=== PATIENT | female | born 1955 | race African-American/Black ===

== ENCOUNTER 2017-03-27 08:54 | Outpatient (CLI) | payer OTHER | END 2017-03-27 08:55 | disposition home or self-care (01) | LOC: DTY/OP 08:54 | PROVIDERS: ATTEND Surgery | DX: K43.9 Ventral hernia without obstruction or gangrene (principal) | CPT/HCPCS: 97802 ==

== ENCOUNTER 2017-08-17 13:54 | Outpatient (CLI) | payer OTHER, MEDICARE | END 2017-08-17 13:55 | disposition home or self-care (01) | LOC: BICULT 13:54 | PROVIDERS: ATTEND Family Medicine | DX: Z03.89 Encounter for observation for other suspected diseases and conditions ruled out (principal) ==

== ENCOUNTER 2017-09-16 08:00 | Outpatient (CLI) | payer OTHER, MEDICARE | END 2017-09-16 08:01 | disposition home or self-care (01) | LOC: BICMRI 08:00 | PROVIDERS: ATTEND Orthopaedic Surgery | DX: S83.241A Other tear of medial meniscus, current injury, right knee, initial encounter (principal); M23.306 Other meniscus derangements, unspecified meniscus, right knee; M94.261 Chondromalacia, right knee; M22.41 Chondromalacia patellae, right knee; M23.41 Loose body in knee, right knee; M65.9 Synovitis and tenosynovitis, unspecified; M25.461 Effusion, right knee ==

== ENCOUNTER 2017-09-22 10:04 | Outpatient (CLI) | payer OTHER, MEDICARE ==
[2017-09-22 11:27] LABS: #Eosinphils 0.1 thou/uL (0.0-0.7); #Lymphocytes 1.8 thou/uL (1.20-3.40); #Monocytes 0.4 thou/uL (0.11-0.59); #Neutrophils 3.6 thou/uL (1.40-6.50); %Basophils 0.5 % (0.0-1.0); %Eosinophils 1.4 % (0.0-10.0); %Lymphocytes 30.7 % (21.0-51.0); %Monocytes 6.8 % (0.0-10.0); %Neutrophils 60.7 % (42.0-75.0); Hemoglobin 12.6 g/dL (12.0-16.0); Mean Corpuscular HGB CONC 30.4 g/dL (32.0-36.0); Mean Corpuscular Hemoglobin 28.1 pg (27.0-31.0); Mean Corpuscular Volume 92.7 fl (81.0-99.0); Mean Platelet Volume 8.2 fL (7.4-10.4); Platelet Count 234 thou/uL (130-400); RBC Distribution Width 13.4 % (11.5-14.5); Red Blood Cell (RBC) Count 4.47 mill/uL (4.20-5.40); White Blood Cell (WBC) Count 5.9 thou/uL (4.8-10.8)
[2017-09-22 11:51] LABS: ALT (SGPT) 9 U/L (8-55); AST (SGOT) 13 U/L (5-34); Albumin 3.7 g/dL (3.4-4.8); Alkaline Phosphatase 127 U/L (40-150); Anion Gap 10 mmol/L (10-20); BUN (Urea Nitrogen) 15 mg/dL (9.8-20.1); Bilirubin, Total 0.4 mg/dL (0.2-1.2); Calc. Creatinine Clearance 0 mL/min (70-130); Calcium 9.6 mg/dL (7.8-10.44); Carbon Dioxide 29 mmol/L (23-31); Chloride 103 mmol/L (98-107); Estimated GFR-MDRD 65; Globulin 3.5 g/dL (2.4-3.5); Glucose 86 mg/dL (80-115); Potassium 3.9 mmol/L (3.5-5.1); Protein, Total 7.2 g/dL (6.0-8.3); Sodium 138 mmol/L (136-145)
--- NOTE | 2017-09-22 23:54 | EKG ---
Test Reason : Blood Pressure : / mmHG Vent. Rate : 054 BPM Atrial Rate : 054 BPM P-R Int : 150 ms QRS Dur : 088 ms QT Int : 410 ms P-R-T Axes : 023 049 051 degrees QTc Int : 388 ms Sinus bradycardia Otherwise normal ECG When compared with ECG of 29-JAN-2016 11:48, No significant change was found Confirmed by Scarlet RAMIREZ ([id number]) on 09/22/2017 11:53:55 PM Referred By: JOE Confirmed By:Scarlet RAMIREZ
== END 2017-09-22 10:05 | disposition home or self-care (01) ==
LOC: LABBT 10:04
PROVIDERS: ATTEND Surgery
DX: Z01.818 Encounter for other preprocedural examination (principal); K43.2 Incisional hernia without obstruction or gangrene
CPT/HCPCS: 80053; 85025; 93005; 93010

== ENCOUNTER 2017-09-24 06:01 | Inpatient (IN) | payer OTHER, MEDICARE ==
[2017-09-22 10:24] VITALS: BMI 38.8
[2017-09-24] MEDS ORDERED: Lidocaine 2% 10 ML INJ ONE (06:28)
[2017-09-24] MEDS ORDERED: Bupivacaine HCl 0.5%/Epinephrine 1:200,000/PF 30 ml Vial ONE (06:28)
[2017-09-24] MEDS ORDERED: CEFAZOLIN/Water 2 GM/20 ML SYRINGE ONE (06:45)
[2017-09-24] MEDS ORDERED: Fentanyl 100 MCG/2 ML VIAL ONE (07:19)
[2017-09-24] MEDS ORDERED: HYDROmorphone 0.5 MG/0.5 ML SYRINGE ONE (07:19)
[2017-09-24] MEDS ORDERED: Midazolam HCl 2 mg/2 ml Vial ONE ×2 (07:19→07:21)
[2017-09-24] MEDS ORDERED: Zolpidem Tartrate 5 MG TAB PO PRN ×2 (08:44→09:48)
[2017-09-24] MEDS ORDERED: diphenhydrAMINE 50 MG/ML VIAL IM PRN ×2 (08:44→09:48)
[2017-09-24] MEDS ORDERED: diphenhydrAMINE 50 MG/ML VIAL IVP PRN ×2 (08:44→09:48)
[2017-09-24] MEDS ORDERED: Ondansetron HCl/PF 4 MG/2 ML Vial IVP PRN ×4 (08:44→09:48)
[2017-09-24] MEDS ORDERED: Promethazine HCl 25 MG/ML VIAL IM PRN ×4 (08:44→09:48)
[2017-09-24] MEDS ORDERED: Meperidine HCl/PF 25 MG/ML VIAL SLOW IVP PRN (08:44)
[2017-09-24] MEDS ORDERED: diphenhydrAMINE 25 MG CAP PO PRN ×2 (08:44→09:48)
[2017-09-24] MEDS ORDERED: Promethazine HCl 25 MG/ML VIAL SLOW IVP PRN (08:44)
[2017-09-24] MEDS ORDERED: Naloxone HCl 0.4 mg/ml Vial IV PRN ×2 (08:44→09:48)
[2017-09-24] MEDS ORDERED: Communication Order-Pharmacy FS SCH ×2 (08:45→10:00)
[2017-09-24] MEDS ORDERED: hydrALAZINE 20 MG/ML VIAL SLOW IVP PRN (09:22)
[2017-09-24] MEDS ORDERED: Morphine CADD 1 MG/ML CADD IVPB PRN (09:48)
[2017-09-24] MEDS ORDERED: Morphine 4 MG/ML VIAL ONE ×2 (09:50→10:14)
--- NOTE | 2017-09-24 10:07 | OP ---
PREOPERATIVE DIAGNOSIS: Incisional ventral hernia. SURGEON: Mello Mota M.D. PROCEDURE PERFORMED: Open ventral hernia repair with mesh. INDICATIONS: This is a 62-year-old female who had undergone an emergency colectomy for perforation w ith colostomy. She has had a colostomy takedown. She developed ventral hernias on the left side of her abdomen as well as in the midline. FINDINGS: About 6 different hernias, the largest of which was about 4 cm just to the left of the epi gastrium. PROCEDURE IN DETAIL: After informed consent was obtained, patient was taken to the operating room an d given general endotracheal anesthesia. She was placed in the supine position. Abdomen was prepped and draped in usual fashion. An upper midline incision was performed. Subcu divided sharply. Ther e were multiple hernias in the midline. These hernias were all connected. There were also two herni as on the lateral. Lysis of adhesions was performed sharply with Metzenbaum scissors. The hernias t hat were lateral were closed transversely with a running #1 Prolene. Then, a 6 inch x 6 inch Proceed mesh was fashioned by placing alternating colors with total of 8 sutures of 0 Ethibond in circumfere nce. Then the mesh was inserted intra-abdominally and laid out and the sutures were individually gra sped with a GraNee needle transcutaneously and sutured to position the mesh optimally. Then, the hem ostasis was assured. The fascia closed with interrupted [id number] of 8 to #1 Prolene. Then, the Ethibonds were tied down to secure the mesh. The subcu was irrigated with fluid. Subcu closed w ith interrupted 3-0 Vicryl. Skin closed with skin primitivo. The sterile bandage applied. Dermabond was applied were all the little puncture wounds were for the mesh suture. An abdominal binder fantasma long. Patient tolerated the procedure well and was transferred to recovery in good condition. Sponge a nd needle count verified correct x2.
[2017-09-24] MEDS: Ketorolac Tromethamine 30 MG/ML VIAL IVP SCH ×3 (11:47→23:07)
[2017-09-24] MEDS: Sodium Chloride 0.9% 1,000 ML IV SCH ×2 (11:48→17:26)
[2017-09-24] MEDS: Acetaminophen 1,000 MG in Premix Bag 1 BAG IVPB SCH ×6 (13:46→23:11)
[2017-09-24] MEDS: CEFAZOLIN/Water 2 GM/20 ML SYRINGE SLOW IVP SCH ×2 (13:47→22:45)
[2017-09-24] MEDS ORDERED: Ondansetron HCl/PF 4 MG/2 ML Vial ONE (15:05)
[2017-09-24] MEDS ORDERED: Ketorolac Tromethamine 30 MG/ML VIAL ONE (15:05)
[2017-09-24] MEDS ORDERED: Dexamethasone 20 MG/5 ML VIAL ONE (15:05)
[2017-09-24] MEDS ORDERED: Lidocaine 1% PF 5 ML VIAL ONE (15:05)
[2017-09-24] MEDS ORDERED: ePHEDrine/0.9% NaCl/PF SYRINGE 50 mg/10 ml ONE (15:05)
[2017-09-24] MEDS ORDERED: Glycopyrrolate 0.2 MG/ML 5 ML SYRINGE ONE ×2 (15:05)
[2017-09-24] MEDS ORDERED: PROPOFOL 200 MG/20 ML VIAL ONE (15:05)
[2017-09-24] MEDS: Famotidine/PF 20 mg/2ml Vial SLOW IVP SCH (22:45)
[2017-09-24] MEDS: Famotidine 20 MG TAB PO SCH (22:46)
[2017-09-25 04:03] LABS: #Lymphocytes 1.5 thou/uL (1.20-3.40); #Monocytes 0.6 thou/uL (0.11-0.59); #Neutrophils 10.5 thou/uL (1.40-6.50); %Lymphocytes 11.9 % (21.0-51.0); %Monocytes 4.7 % (0.0-10.0); %Neutrophils 83.5 % (42.0-75.0); Hemoglobin 11.6 g/dL (12.0-16.0); Mean Corpuscular HGB CONC 31.4 g/dL (32.0-36.0); Mean Corpuscular Hemoglobin 29.5 pg (27.0-31.0); Mean Corpuscular Volume 93.9 fl (81.0-99.0); Mean Platelet Volume 8.6 fL (7.4-10.4); Platelet Count 213 thou/uL (130-400); RBC Distribution Width 13.3 % (11.5-14.5); Red Blood Cell (RBC) Count 3.92 mill/uL (4.20-5.40); White Blood Cell (WBC) Count 12.6 thou/uL (4.8-10.8)
[2017-09-25 04:14] LABS: Anion Gap 12 mmol/L (10-20); BUN (Urea Nitrogen) 16 mg/dL (9.8-20.1); Calc. Creatinine Clearance 84 mL/min (70-130); Calcium 8.6 mg/dL (7.8-10.44); Carbon Dioxide 26 mmol/L (23-31); Chloride 107 mmol/L (98-107); Estimated GFR-MDRD 71; Glucose 98 mg/dL (80-115); Potassium 4.6 mmol/L (3.5-5.1); Sodium 140 mmol/L (136-145)
[2017-09-25] MEDS: Ketorolac Tromethamine 30 MG/ML VIAL IVP SCH ×2 (06:37→12:24)
[2017-09-25] MEDS: Acetaminophen 1,000 MG in Premix Bag 1 BAG IVPB SCH ×2 (06:38→12:25)
[2017-09-25] MEDS: Sodium Chloride 0.9% 1,000 ML IV SCH ×2 (06:38→09:36)
[2017-09-25] MEDS ORDERED: Enoxaparin Sodium 40 MG/0.4 ML SYRINGE SC SCH (09:00)
[2017-09-25] MEDS: Famotidine/PF 20 mg/2ml Vial SLOW IVP SCH (09:35)
[2017-09-25] MEDS: Famotidine 20 MG TAB PO SCH (09:35)
[2017-09-25] MEDS ORDERED: HYDROcodone/Acetaminophen 7.5/325 mg Tablet PO PRN ×2 (10:21)
[2017-09-25] MEDS ORDERED: DC PCA Order Set 1 EACH FS ONE (10:21)
[2017-09-25] MEDS ORDERED: Morphine 4 MG/ML VIAL SLOW IVP PRN ×2 (10:21)
[2017-09-25 11:40] VITALS: BP 145/81; TEMP 98.2
--- NOTE | 2017-09-25 13:12 | DIS ---
DATE OF ADMISISON: 09/24/2017 DATE OF DISCHARGE: 09/25/2017 DISCHARGE DIAGNOSIS: Incisional ventral hernia. PROCEDURES DURING ADMISSION: Open ventral hernia repair with mesh. HOSPITAL COURSE: The patient was admitted, taken to the operating room where she underwent repair. She was found to have actually 5 ventral hernias that were repaired. They were closed and reinforced with mesh. Postoperatively, she has done well. Her bowel function has returned. She is tolerating liquids well. She is discharged home on p.o. medications of Leon, Zofran and Colace. She will fol low up with me in 2 weeks.
== END 2017-09-25 15:49 | disposition home or self-care (01) | DRG 355 ==
LOC: SDC 06:01 → SURG B 10:31
PROVIDERS: ADMIT Surgery; ATTEND Surgery
PROC: 0WUF0JZ Supplement Abdominal Wall with Synthetic Substitute, Open Approach (ICD-10-PCS; principal; 2017-09-24)
DX: K43.2 Incisional hernia without obstruction or gangrene (principal); Z87.891 Personal history of nicotine dependence
CPT/HCPCS: 36415; 80048; 80053; 85025; 93005; 93010; J0131; J0670; J1100; J1170; J1885; J2001; J2250; J2270; J2274; J2405; J2704; J3010

== ENCOUNTER 2018-02-18 12:03 | Outpatient (CLI) | payer OTHER, MEDICARE ==
--- NOTE | 2018-02-18 16:38 | RAD ---
CHEST PA AND LATERAL: 02/18/18 HISTORY: 62-year-old female for preoperative evaluation. COMPARISON: 02/23/08. FINDINGS: Minimal cardiomegaly. Some mild vascular congestion without confluent pneumonia, overt edema or signi ficant pleural effusion. IMPRESSION: Mild cardiomegaly with mild stable vascular congestion. No acute edema or confluent pneumonia. Athero sclerosis of the aorta with ectasia. POS: CALVIN[facility]
== END 2018-02-18 12:04 | disposition home or self-care (01) ==
LOC: LABBT 12:03
PROVIDERS: ATTEND Orthopaedic Surgery
DX: Z01.818 Encounter for other preprocedural examination (principal); M17.11 Unilateral primary osteoarthritis, right knee
CPT/HCPCS: 71046; 87081; 93005; 93010

== ENCOUNTER 2018-02-18 13:30 | Inpatient (IN) | payer OTHER, MEDICARE ==
[2018-03-02] MEDS ORDERED: Fentanyl 100 MCG/2 ML VIAL SLOW IVP PRN ×2 (06:57)
[2018-03-02] MEDS ORDERED: Acetaminophen 325 MG TAB PO PRN (06:57)
[2018-03-02] MEDS ORDERED: HYDROcodone/Acetaminophen 10/325 mg Tablet PO PRN ×3 (06:57→08:38)
[2018-03-02] MEDS ORDERED: traMADol HCl 50 MG TAB PO PRN ×2 (06:57→08:38)
[2018-03-02] MEDS ORDERED: Zolpidem Tartrate 5 MG TAB PO PRN ×2 (06:57→08:38)
[2018-03-02] MEDS ORDERED: diphenhydrAMINE 25 MG CAP PO PRN (06:57)
[2018-03-02] MEDS ORDERED: Ondansetron PF 4 MG/2 ML Vial IVP PRN (06:57)
[2018-03-02] MEDS ORDERED: Promethazine HCl 25 MG/ML VIAL IM PRN ×3 (06:57→09:25)
[2018-03-02] MEDS ORDERED: Docusate 100 MG CAP PO PRN (06:59)
[2018-03-02] MEDS ORDERED: Ergocalciferol 1.25 MG(50,000 UNITS) CAP PO SCH (07:00)
[2018-03-02] MEDS ORDERED: Sodium Chloride 0.9% 100 ML ONE (07:47)
[2018-03-02] MEDS ORDERED: CEFAZOLIN 2 GM/50 ML BAG ONE (07:47)
[2018-03-02] MEDS ORDERED: Midazolam HCl 2 mg/2 ml Vial ONE (07:57)
[2018-03-02] MEDS ORDERED: Fentanyl 100 MCG/2 ML VIAL ONE ×4 (07:57→12:13)
[2018-03-02] MEDS ORDERED: Vancomycin HCl 1.5 GM in Sodium Chloride 0.9% 250 ML 300 ML IVPB SCH (08:30)
[2018-03-02] MEDS ORDERED: Ropivacaine HCl/PF 250 ML in Premix Bag 1 BAG NERVE BLCK SCH (08:38)
[2018-03-02] MEDS ORDERED: Fentanyl 100 MCG/2 ML VIAL IV PRN (08:38)
[2018-03-02] MEDS ORDERED: Promethazine HCl 25 MG/ML VIAL SLOW IVP PRN (09:25)
[2018-03-02] MEDS ORDERED: Ondansetron HCl/PF 4 MG/2 ML Vial IVP PRN (09:25)
--- NOTE | 2018-03-02 10:44 | OP ---
DATE OF PROCEDURE: 03/02/2018 TITLE OF PROCEDURE: Right total knee arthroplasty. PREOPERATIVE DIAGNOSIS: Degenerative arthritis, right knee. POSTOPERATIVE DIAGNOSIS: Probable inflammatory arthritis of the right knee. SURGEON: Dr. David Garcia SHEEP FARM MANAGER: Navdeep Muñoz IMPLANTS USED: Konstantin Triathlon 3 femur, 3 tibia, 9 mm CS X3 polyethylene and A29 patella. PROCEDURE IN DETAIL: After informed consent was obtained in the preoperative holding area. The talha ent was taken to the operative suite where general anesthesia was induced. Once adequate level of ge neral anesthesia was obtained, the patient was positioned and a well-padded tourniquet was placed kena und the right proximal thigh. The right lower extremity was then prepped and draped in the usual berto rile fashion. Prior to exsanguination, a time out was called and all members of the surgical team ag nacho upon site, surgeon, and patient. The extremity was then exsanguinated and the tourniquet was ra ised. A midline longitudinal incision was then made directly over the patella extending two fingerbr eadths above the superior pole of the patella and two fingerbreadths inferior to the inferior patella r pole of the patella. Deeper subcutaneous layers were dissected sharply and local bleeding was cont rolled with Bovie electrocautery. A quad tendon longitudinal split was then made sharply and a media n parapatellar arthrotomy was carried out both sharp and with Bovie electrocautery, carried down to o ne fingerbreadth medial to the tibial tubercle. The knee was then placed into flexion and the patell a was everted nicely, and a copious fat pad ectomy was performed allowing for greater exposure of the tibia. The computer-assisted distal femoral fiducial was then placed and pinned firmly, and the dis toni femoral cutting guide was pinned firmly into place. The oscillating saw was then used to remove the appropriate amount of bone. The 4-in-1 cutting block was then placed on the distal femur and the oscillating saw was used to remove the appropriate amount of bone off of the anterior, posterior, an d chamfer cuts. After completion of bone cuts, the anterior cruciate ligament was resected sharply a nd the posterior cruciate ligament retractor was placed and the tibia was subluxed for better exposur e. Partial meniscectomies were carried out, and the tibial computer-assisted fiducial was pinned, an d the cutting guide was placed. Oscillating saw was then used to remove the bone with Hohmann retrac tors used to take care and protect the collateral ligaments. After the tibial resection was performe d, a laminar fitness trainer was placed in between the freshened bone cuts. The knee placed at 90 degrees a nd further bilateral meniscectomies were carried out, and the curved osteotome and curettage was used to remove any excess bone spurs in the posterior compartment. The trial femoral component, tibial b aseplate were placed with the appropriate polyethylene trial insert with an appropriate polyethylene spacer and patellar button. The knee was taken through full range of motion with flexion and extensi on from 0-90 degrees and patellar broach squarely in the trochlea without any squinting or subluxatio n noted. The knee was also stable to varus and valgus stressing at 0, 15, 45, and 90 degrees of flex ion. The drawer was negative. All trial components were then removed and the keel punch was used to provide the appropriate defect in the tibia with a mallet. The freshened bone cuts were copiously ir rigated with pulsatile lavage of about 1-1/2 liters to remove all excess debris. The freshened bone cuts were then dried and with suction and lap sponge. The knee was placed in flexion and retractors were placed to provide access to all bone cuts. Tobramycin impregnated methyl methacrylate cement wa s then placed on the freshened bone cuts and implants which were malleted firmly into place. Curetta ge and [place] elevators were used to remove any excess bone cement. The knee was placed into full ext ension and the patellar button was placed under compression, and the cement was allowed to cure. Onc e completed, the components were again taken through full range of motion and copious irrigation of t he knee was carried out with another liter of normal saline. All components were inspected fully wit h full range of motion and varus and valgus stressing. There was no laxity noted and full extension w as observed clinically. Primary closure was accomplished with #2 interrupted Vicryl stitch of the ar throtomy defect. This was oversewn with a #2 running Quill barbed stitch. The gravitational platele t system was then injected into the arthrotomy prior to closure. The subcutaneous layer was then nely sed with a running 0 barbed Monocryl stitch and skin closure accomplished with a running subcuticular 3-0 Monocryl barbed Quill stitch and augmented with cement on the skin. Tourniquet was lowered. Go od spontaneous return of distal pulses was noted clinically and a sterile dressing was applied to the incision. The procedure was terminated without any complications. The patient was awakened in the operative suite and the tourniquet was removed, and the patient was taken to the recovery room in sta ble condition.
--- NOTE | 2018-03-02 10:52 | RAD ---
TWO VIEWS RIGHT KNEE: Comparison: None. History: Status post right knee arthroplasty. FINDINGS: Two views of the right knee shows the patient to be status post right knee arthroplasty without perih ardware lucency or fracture. Air in the soft tissues is from recent surgery. IMPRESSION: Status post right knee arthroplasty without evidence of complication. POS: TPC
[2018-03-02] MEDS ORDERED: Ropivacaine 0.5% HCl/PF (150 MG/30 ML VIAL) ONE (13:32)
[2018-03-02] MEDS ORDERED: Bupivacaine/Epinephrine 0.25% 30 ML VIAL ONE (13:32)
[2018-03-02] MEDS ORDERED: Ketorolac Tromethamine 30 MG/ML VIAL ONE (13:44)
[2018-03-02] MEDS ORDERED: PROPOFOL 200 MG/20 ML VIAL ONE (14:53)
[2018-03-02] MEDS ORDERED: Ondansetron PF 4 MG/2 ML Vial ONE (14:53)
[2018-03-02] MEDS ORDERED: Lidocaine 1% PF 5 ML VIAL ONE (14:53)
[2018-03-02] MEDS: Ketorolac Tromethamine 30 MG/ML VIAL IVP SCH ×2 (15:28→17:30)
[2018-03-02] MEDS: Multivitamin W/ Minerals 1 TAB PO SCH (15:29)
[2018-03-02] MEDS: Senokot S 8.6-50 MG TAB PO SCH ×2 (15:29→21:17)
[2018-03-02] MEDS: Aspirin 81 mg Enteric Coated Tablet PO SCH ×2 (15:30→21:16)
[2018-03-02] MEDS: Ferrous Gluconate 324 MG TAB PO SCH ×2 (15:30→21:17)
[2018-03-02] MEDS: Carvedilol 25 MG TAB PO SCH ×2 (15:30→18:02)
[2018-03-02] MEDS: Sodium Chloride 0.9% 1,000 ML IV SCH ×2 (15:32→19:59)
[2018-03-02 15:40] VITALS: BMI 44.7
[2018-03-02] MEDS: traMADol HCl 50 MG TAB PO PRN (16:00)
[2018-03-02] MEDS: Losartan 25 MG TAB PO SCH (16:02)
[2018-03-02] MEDS: Ondansetron PF 4 MG/2 ML Vial IVP PRN (17:30)
[2018-03-02] MEDS: CEFAZOLIN 2 GM/50 ML BAG IVPB SCH (17:30)
--- NOTE | 2018-03-02 23:46 | CON-2 ---
DATE OF ADMISSION: 03/02/2018 DATE OF CONSULTATION: 03/02/2018 ADMITTING ATTENDING: Asim Dallas M.D. CONSULTING PHYSICIAN: David Garcia M.D. REASON FOR CONSULTATION: Medical management. HISTORY OF PRESENT ILLNESS: The patient is a 62-year-old -English female who underwent a tot al right knee arthroplasty today for degenerative joint disease. The procedure went well. We consul sammy for medical management. She has a history of hypertension and chronic kidney disease stage 2 as well as a remote history of anemia. The patient reports stable blood pressures at home 140s/70s, wel l controlled on her current medication. She sees Dr. Mireles, has a primary care and sees Dr. Jefferson for her chronic kidney disease stage 2 on last report, she was given to be no longer had any damage. REVIEW OF SYSTEMS: A 10-point review of systems was done and positive for pain at this time at the s urgical site, otherwise negative. PAST MEDICAL HISTORY: 1. Hypertension. 2. Chronic kidney disease stage 2. 3. Anemia. PAST SURGICAL HISTORY: 1. Gallbladder removal. 2. Appendectomy. 3. Hysterectomy. 4. Sigmoid colectomy. 5. Colostomy. 6. Cystoscopy. 7. Ventral hernia repair. 8. Right knee arthroplasty. FAMILY HISTORY: Hypertension in her mother and father and prostate cancer in father. ALLERGIES: CODEINE. SOCIAL HISTORY: Prior tobacco use, one-half pack per day for 10 years, quit about 3 years ago. John es alcohol and drug use. MEDICATIONS: Takes Coreg 25 mg b.i.d., losartan 100 mg daily, and amlodipine 2.5 mg. PHYSICAL EXAMINATION: VITAL SIGNS: Temperature 97.6, pulse 60, respiratory rate 16, O2 sats 96% on room air with blood pre ssure 103/61. LABORATORY DATA: No pertinent laboratory findings. ASSESSMENT AND PLAN: 1. Findings of inflammatory arthritis status post right knee arthroplasty. We will allow Ortho to m su adjustments in pain medication management and placement for possible rehabilitation therapy. 2. Hypertension, appears to be stable at this point. We will restart home medications of Coreg, los bethany, and amlodipine and continue to monitor. 3. Chronic kidney disease stage 2. We will get morning BMP just to check, but it does appear to be stable as well. 4. History of anemia. H&H scheduled for tomorrow morning. We will follow along with you.
[2018-03-03] MEDS: Ketorolac Tromethamine 30 MG/ML VIAL IVP SCH ×4 (00:41→18:04)
[2018-03-03] MEDS: CEFAZOLIN 2 GM/50 ML BAG IVPB SCH (00:42)
[2018-03-03] MEDS: HYDROcodone/Acetaminophen 10/325 mg Tablet PO PRN ×2 (00:48→06:49)
[2018-03-03] MEDS: traMADol HCl 50 MG TAB PO PRN (03:55)
[2018-03-03] MEDS: Sodium Chloride 0.9% 1,000 ML IV SCH ×3 (04:55→22:40)
[2018-03-03 05:50] LABS: Hemoglobin 12.2 g/dL (12.0-16.0); Mean Corpuscular HGB CONC 30.2 g/dL (32.0-36.0); Mean Corpuscular Hemoglobin 29.4 pg (27.0-31.0); Mean Corpuscular Volume 97.2 fL (78.0-98.0); Mean Platelet Volume 9.1 fL (7.4-10.4); Platelet Count 198 thou/uL (130-400); RBC Distribution Width 13.5 % (11.5-14.5); Red Blood Cell (RBC) Count 4.15 mill/uL (4.20-5.40); White Blood Cell (WBC) Count 7.9 thou/uL (4.8-10.8)
[2018-03-03 06:09] LABS: Anion Gap 12 mmol/L (10-20); BUN (Urea Nitrogen) 13 mg/dL (9.8-20.1); Calc. Creatinine Clearance 98 mL/min (70-130); Carbon Dioxide 29 mmol/L (23-31); Chloride 104 mmol/L (98-107); Estimated GFR-MDRD 72; Glucose 100 mg/dL (80-115); Sodium 141 mmol/L (136-145)
[2018-03-03] MEDS: Ondansetron PF 4 MG/2 ML Vial IVP PRN (06:50)
--- NOTE | 2018-03-03 07:20 | PDOC.FM ---
- Subjective Subjective: Patient is tired this morning and reporting pain. Pain medication just given. She was able to ambulate with assistance yesterday. She did require some oxygen overnight but was weaned off this morning. Today reports no SOB, cough, or chest pain. Urinating normally. - Objective MAR Reviewed: Yes Vital Signs & Weight: Vital Signs (12 hours) Pulse Ox 03/02/18 20:00 95 Weight Weight 103.873 kg I&O: 03/02/18 03/03/18 03/04/18 06:59 06:59 06:59 Intake Total 640 Output Total 1425 Balance -785 Result Diagrams: 03/03/18 05:15 03/03/18 05:15 <Jenni Fang - Last Filed: 03/03/18 09:19> - Objective Vital Signs & Weight: Vital Signs (12 hours) Temp Pulse Resp BP Pulse Ox 03/04/18 07:25 98.3 F 77 16 156/84 H 95 03/04/18 03:50 98.6 F 77 20 140/81 99 03/04/18 00:55 98 F 82 20 92/61 95 03/03/18 20:59 99.7 F H 85 19 120/78 95 Weight Admit Weight 103.873 kg Weight 103.873 kg I&O: 03/03/18 03/04/18 03/05/18 06:59 06:59 06:59 Intake Total 640 Output Total 1425 Balance -785 Result Diagrams: 03/04/18 04:35 03/03/18 05:15 <Catrachito Brown - Last Filed: 03/04/18 08:43> Phys Exam - Physical Examination Constitutional: NAD HEENT: moist MMs Respiratory: no wheezing, no rales, clear to auscultation bilateral incentive spirometer to 500-750 Cardiovascular: RRR, no significant murmur Gastrointestinal: soft, non-tender, no distention Musculoskeletal: pulses present edema of R leg with dressing in place, C, D, I Neurological: moves all 4 limbs Psychiatric: normal affect, A&O x 3 Skin: cap refill <2 seconds <Jenni Fang - Last Filed: 03/03/18 09:19> Dx/Plan (1) Arthritis of knee, right Code(s): M17.11 - UNILATERAL PRIMARY OSTEOARTHRITIS, RIGHT KNEE Status: Acute (2) Hypertension Code(s): I10 - ESSENTIAL (PRIMARY) HYPERTENSION Status: Acute (3) CKD (chronic kidney disease) stage 2, GFR 60-89 ml/min Code(s): N18.2 - CHRONIC KIDNEY DISEASE, STAGE 2 (MILD) Status: Acute - Plan Plan: R Knee Arthritis s/p Arthroplasty - POD#1, pain meds prn - continue PT/OT - Continue incentive spirometer HTN - well controlled. - continue current home medication regimen CKD2 - at baseline. Dispo: D/c pending placement <Jenni Fang - Last Filed: 03/03/18 09:19> Attending Addendum - Attending Addendum Date/Time: 03/04/18 0842 I personally evaluated the patient and discussed the management with Dr. Fang yesterday. I agree with the History, Examination, Assessment and Plan documented above with any addition or exceptions noted below. Pulse ox 88% during my exam. Lungs clear bu obesity limits exam. I suspect obesity related hypoventilation syndrome. We will recommend decreased opiate use. <Catrachito Brown - Last Filed: 03/04/18 08:43>
[2018-03-03] MEDS: Multivitamin W/ Minerals 1 TAB PO SCH (08:05)
[2018-03-03] MEDS: Carvedilol 25 MG TAB PO SCH ×2 (08:05→18:04)
[2018-03-03] MEDS: Aspirin 81 mg Enteric Coated Tablet PO SCH ×2 (08:05→21:06)
[2018-03-03] MEDS: Ferrous Gluconate 324 MG TAB PO SCH ×2 (08:05→21:06)
[2018-03-03] MEDS: Senokot S 8.6-50 MG TAB PO SCH ×2 (08:05→21:06)
[2018-03-03] MEDS: Losartan 25 MG TAB PO SCH (08:06)
[2018-03-03] MEDS ORDERED: Amlodipine 5 MG TAB PO SCH (09:00)
--- NOTE | 2018-03-03 11:13 | PDOC.EVN ---
Event Note - Event Note Event Note: Patient hypoxic overnight, responded well to o2. During rounds, turned off o2, patient sitting up at bedside eating breakfast, and o2 sats continued on the 80' s with good waveform. Turned o2 back on to 2L. Patient has body habitus concerning for either obesity hypoventilation syndrome or GRACIE. Malampati IV. Lung sounds clear with good air movement. No acute distress. She can only complete incentive spirometer only to 500. Nurse reports worsened o2 sats after [place] had been given. Concern for atelectasis on top of underlying obstructive disorder and worsened by narcotics. At this time will discontinue [place] 10/325 altogether and recommend toradol, tramadol, or norco 5/325 for pain. Will continue to monitor. Nurse staff called 1100 and reports patient performing rehab on RA with o2sats 92-93%.
[2018-03-04] MEDS: Ketorolac Tromethamine 30 MG/ML VIAL IVP SCH ×3 (00:17→12:45)
[2018-03-04 06:02] LABS: Hemoglobin 10.4 g/dL (12.0-16.0); Mean Corpuscular HGB CONC 29.9 g/dL (32.0-36.0); Mean Corpuscular Volume 96.9 fL (78.0-98.0); Mean Platelet Volume 9.5 fL (7.4-10.4); Platelet Count 198 thou/uL (130-400); RBC Distribution Width 13.5 % (11.5-14.5); Red Blood Cell (RBC) Count 3.59 mill/uL (4.20-5.40)
--- NOTE | 2018-03-04 06:53 | PDOC.FM ---
- Subjective Subjective: Patient is doing well this morning. She was able to complete rehab therapy yesterday and did not require O2 although overnight she still requiring 2L supplemental o2. No cp, sob, cough, or other complaints. Pain is well controlled - Objective MAR Reviewed: Yes Vital Signs & Weight: Vital Signs (12 hours) Temp Pulse Resp BP Pulse Ox 03/04/18 03:50 98.6 F 77 20 140/81 99 03/04/18 00:55 98 F 82 20 92/61 95 03/03/18 20:59 99.7 F H 85 19 120/78 95 03/03/18 20:00 95 Weight Admit Weight 103.873 kg Weight 103.873 kg I&O: 03/02/18 03/03/18 03/04/18 06:59 06:59 06:59 Intake Total 640 Output Total 1425 Balance -785 Result Diagrams: 03/04/18 04:35 03/03/18 05:15 Phys Exam - Physical Examination Constitutional: NAD HEENT: moist MMs Respiratory: no wheezing, no rales Cardiovascular: RRR, no significant murmur Gastrointestinal: soft, non-tender Musculoskeletal: pulses present Neurological: moves all 4 limbs Psychiatric: normal affect, A&O x 3 Dx/Plan (1) Arthritis of knee, right Code(s): M17.11 - UNILATERAL PRIMARY OSTEOARTHRITIS, RIGHT KNEE Status: Acute (2) Hypertension Code(s): I10 - ESSENTIAL (PRIMARY) HYPERTENSION Status: Acute (3) CKD (chronic kidney disease) stage 2, GFR 60-89 ml/min Code(s): N18.2 - CHRONIC KIDNEY DISEASE, STAGE 2 (MILD) Status: Acute - Plan Plan: R Knee Arthritis s/p Arthroplasty - POD#1, pain meds prn - continue PT/OT - Continue incentive spirometer use Hypoxia - likely multifactorial. Suspect underlying obesity-hypoventilation syndrome vs GRACIE and with poor incentive spirometer use some atelectasis. - try to wean today and if not able, may consider pulm involvement to establish care and get outside workup to make appropriate diagnosis. - consider CXR today HTN - did not get losartan or amlodipine yesterday morning and despite that, pressures were mostly at goal - will d/c amlodipine and 1/2 the dose of losartan for today. CKD2 - at baseline. Dispo: D/c pending placement
[2018-03-04] MEDS ORDERED: Losartan 25 MG TAB PO SCH (09:00)
[2018-03-04] MEDS: Carvedilol 25 MG TAB PO SCH (09:36)
[2018-03-04] MEDS: Multivitamin W/ Minerals 1 TAB PO SCH (09:37)
[2018-03-04] MEDS: Ferrous Gluconate 324 MG TAB PO SCH (09:37)
[2018-03-04] MEDS: Aspirin 81 mg Enteric Coated Tablet PO SCH (09:37)
[2018-03-04] MEDS: Senokot S 8.6-50 MG TAB PO SCH (09:37)
[2018-03-04] MEDS: Sodium Chloride 0.9% 1,000 ML IV SCH (10:07)
--- NOTE | 2018-03-04 12:03 | PRG ---
DATE OF SERVICE: 03/04/2018 Ms. Mota is doing quite well this morning. Her blood pressure this morning was 156/84. Yesterday s he was noted to have some drops in her O2 saturations likely secondary to opioid use. We are checkin g on this again this morning. She also has symptoms strongly suggestive of obstructive sleep apnea, although she has no diagnosis of this illness. We have urged her to follow up with her PCP and have a sleep study as an outpatient.
[2018-03-04 16:41] VITALS: BP 128/72; TEMP 97.8
== END 2018-03-04 16:43 | disposition home or self-care (01) | DRG 470 ==
LOC: SJJU 03-02 06:35
PROVIDERS: ADMIT Orthopaedic Surgery; ATTEND Orthopaedic Surgery
PROC: 0SRC0J9 Replacement of Right Knee Joint with Synthetic Substitute, Cemented, Open Approach (ICD-10-PCS; principal; 2018-03-02)
DX: M17.11 Unilateral primary osteoarthritis, right knee (principal); E66.2 Morbid (severe) obesity with alveolar hypoventilation; N18.2 Chronic kidney disease, stage 2 (mild); I12.9 Hypertensive chronic kidney disease with stage 1 through stage 4 chronic kidney disease, or unspecified chronic kidney disease; D64.9 Anemia, unspecified; Z88.5 Allergy status to narcotic agent; T40.2X5A Adverse effect of other opioids, initial encounter; Z87.891 Personal history of nicotine dependence; Z79.899 Other long term (current) drug therapy; Z79.1 Long term (current) use of non-steroidal anti-inflammatories (NSAID); Z79.891 Long term (current) use of opiate analgesic
CPT/HCPCS: 36415; 80048; 81001; 85025; 85027; 85610; 86850; 86900; 86901; 86922; C1713; C1776; G8978-GP-CK; G8979-GP-CI; J0131; J1885; J2250; J2405; J2550; J2795; J3010; J3370; J7050

== ENCOUNTER 2018-03-01 08:35 | Outpatient (CLI) | payer OTHER, MEDICARE ==
[2018-03-01 09:47] LABS: #Eosinphils 0.1 thou/uL (0.0-0.7); #Lymphocytes 1.6 thou/uL (1.20-3.40); #Monocytes 0.5 thou/uL (0.11-0.59); #Neutrophils 4.4 thou/uL (1.40-6.50); %Basophils 0.1 % (0.0-1.0); %Eosinophils 1.8 % (0.0-10.0); %Lymphocytes 24.5 % (21.0-51.0); %Neutrophils 66.6 % (42.0-75.0); Hemoglobin 11.9 g/dL (12.0-16.0); Mean Corpuscular HGB CONC 30.6 g/dL (32.0-36.0); Mean Corpuscular Hemoglobin 29.2 pg (27.0-31.0); Mean Corpuscular Volume 95.6 fL (78.0-98.0); Mean Platelet Volume 8.7 fL (7.4-10.4); Platelet Count 212 thou/uL (130-400); RBC Distribution Width 13.7 % (11.5-14.5); Red Blood Cell (RBC) Count 4.07 mill/uL (4.20-5.40); White Blood Cell (WBC) Count 6.6 thou/uL (4.8-10.8)
[2018-03-01 10:09] LABS: Prothrombin Time 13.6 SEC (12.0-14.7)
[2018-03-01 10:21] LABS: Bilirubin Negative (Negative); Blood, Urine Negative (Negative); Clarity CLEAR (Clear); Glucose, Urine (Dipstick) Negative (Negative); Leukocyte Negative (Negative); Nitrite Negative (Negative); Protein, Urine (Dipstick) Negative (Neg-Trace); Specific Gravity, Urine 1.021 (1.002-1.036)
[2018-03-01 10:22] LABS: Bacteria/HPF None Seen HPF (None Seen); Hyaline Casts/LPF 0-3 HYALINE CAST LPF (0-3 Hyaline); Pathc Cast-AUWi Flag 0.29 (0-2.49); WBC/HPF 0-3 HPF (0-3)
[2018-03-01 10:34] LABS: Anion Gap 9 mmol/L (10-20); BUN (Urea Nitrogen) 17 mg/dL (9.8-20.1); Calc. Creatinine Clearance 0 mL/min (70-130); Calcium 9.2 mg/dL (7.8-10.44); Carbon Dioxide 30 mmol/L (23-31); Chloride 106 mmol/L (98-107); Estimated GFR-MDRD 72; Glucose 86 mg/dL (80-115); Potassium 4.1 mmol/L (3.5-5.1); Sodium 141 mmol/L (136-145)
== END 2018-03-01 08:36 | disposition home or self-care (01) ==
LOC: LABBT 08:35
PROVIDERS: ATTEND Orthopaedic Surgery
DX: Z01.818 Encounter for other preprocedural examination (principal); M17.11 Unilateral primary osteoarthritis, right knee
CPT/HCPCS: 80048; 81001; 85025; 85610; 86850; 86900; 86901; 86922

== ENCOUNTER 2018-08-29 09:31 | Emergency (ER) | payer OTHER, MEDICARE ==
--- NOTE | 2018-08-29 10:40 | RAD ---
EXAM: XR Knee Rt 4 View STANDARD PROVIDED CLINICAL HISTORY: Pain FINDINGS: There is no evidence for fracture or other acute osseous abnormality. Alignment appears anatomic. Pos toperative changes of right total knee arthroplasty without evidence for hardware complication. IMPRESSION: No evidence for an acute osseous abnormality. If there is persistent clinical concern, conservative m anagement and follow-up imaging advised.
[2018-08-29 10:52] LABS: #Eosinphils 0.1 thou/uL (0.0-0.7); #Lymphocytes 1.4 thou/uL (1.20-3.40); #Monocytes 0.3 thou/uL (0.11-0.59); #Neutrophils 3.4 thou/uL (1.40-6.50); %Basophils 0.3 % (0.0-1.0); %Eosinophils 2.5 % (0.0-10.0); %Monocytes 5.8 % (0.0-10.0); %Neutrophils 65.4 % (42.0-75.0); Mean Corpuscular HGB CONC 31.1 g/dL (32.0-36.0); Mean Corpuscular Hemoglobin 29.1 pg (27.0-31.0); Mean Corpuscular Volume 93.6 fL (78.0-98.0); Mean Platelet Volume 8.7 fL (7.4-10.4); Platelet Count 182 thou/uL (130-400); RBC Distribution Width 14.4 % (11.5-14.5); Red Blood Cell (RBC) Count 4.46 mill/uL (4.20-5.40); White Blood Cell (WBC) Count 5.3 thou/uL (4.8-10.8)
[2018-08-29 11:13] LABS: ALT (SGPT) Less than 7 U/L (8-55); AST (SGOT) 11 U/L (5-34); Albumin 3.7 g/dL (3.4-4.8); Alkaline Phosphatase 116 U/L (40-150); Anion Gap 12 mmol/L (10-20); BUN (Urea Nitrogen) 14 mg/dL (9.8-20.1); Bilirubin, Total 0.3 mg/dL (0.2-1.2); Calc. Creatinine Clearance 0 mL/min (70-130); Calcium 9.8 mg/dL (7.8-10.44); Carbon Dioxide 28 mmol/L (23-31); Chloride 107 mmol/L (98-107); Estimated GFR-MDRD 68; Globulin 3.4 g/dL (2.4-3.5); Glucose 92 mg/dL (80-115); Potassium 4.2 mmol/L (3.5-5.1); Protein, Total 7.1 g/dL (6.0-8.3); Sodium 143 mmol/L (136-145)
--- NOTE | 2018-08-29 11:34 | ULT ---
RIGHT LOWER EXTREMITY VENOUS DOPPLER ULTRASOUND EVALUATION: DATE: 08/29/2018. FINDINGS: Multiple longitudinal and transverse images of the right lower extremity venous systems obtained usin g a MultiHertz linear array transducer. Real-time, color flow and spectral waveform Doppler analysis demonstrates no evidence of acute or old clot seen in the right common femoral, superficial femoral, femoral profunda, popliteal, posterior tibial veins and right greater saphenous vein. IMPRESSION: No evidence of right lower extremity deep venous thrombosis. Transcribed Date/Time: 08/29/2018 11:42 AM
[2018-08-29] MEDS ORDERED: Ketorolac Tromethamine 30 MG/ML VIAL ONE (12:56)
== END 2018-08-29 13:40 | disposition home or self-care (01) ==
LOC: ERS 09:31
DX: M25.561 Pain in right knee (principal); R79.89 Other specified abnormal findings of blood chemistry; I10 Essential (primary) hypertension; Z87.891 Personal history of nicotine dependence; Z79.899 Other long term (current) drug therapy
CPT/HCPCS: 36415; 80053; 85025; 85379; 85652; 96372; J1885

== ENCOUNTER 2018-11-24 21:23 | Inpatient (IN) | payer OTHER, MEDICARE ==
[2018-11-24] MEDS ORDERED: Acetaminophen 500 MG TAB ONE (21:47)
[2018-11-24 22:12] LABS: Mean Corpuscular HGB CONC 30.7 g/dL (32.0-36.0); Mean Corpuscular Hemoglobin 28.8 pg (27.0-31.0); Mean Corpuscular Volume 93.8 fL (78.0-98.0); Mean Platelet Volume 9.7 fL (7.4-10.4); Platelet Count 214 thou/uL (130-400); RBC Distribution Width 13.1 % (11.5-14.5); White Blood Cell (WBC) Count 14.3 thou/uL (4.8-10.8)
--- NOTE | 2018-11-24 22:17 | RAD ---
PORTABLE UPRIGHT FRONTAL CHEST RADIOGRAPH 11/24/18 COMPARISON: 02/18/18. HISTORY: Sore throat and congestion. FINDINGS: Mild increased linear interstitial density noted in the perihilar regions with no pneumothorax, pleur al fluid, focal consolidation or alveolar edema. IMPRESSION: No focal consolidation or alveolar edema. Mild linear density in the perihilar regions may signify mi ld vascular congestion. POS: OFF
[2018-11-24 22:19] LABS: Band 13 % (5-11); Lymphocytes 6 % (21-51); MDiff Complete? YES; Monocytes 7 % (0-10); Neutrophil 74 % (42-75); Platelet Morphology Comment Appears Adequate
[2018-11-24 22:26] LABS: ALT (SGPT) 13 U/L (8-55); AST (SGOT) 23 U/L (5-34); Albumin 3.8 g/dL (3.4-4.8); Alkaline Phosphatase 123 U/L (40-150); Anion Gap 15 mmol/L (10-20); BUN (Urea Nitrogen) 15 mg/dL (9.8-20.1); Bilirubin, Total 0.7 mg/dL (0.2-1.2); Calc. Creatinine Clearance 0 mL/min (70-130); Calcium 10.1 mg/dL (7.8-10.44); Carbon Dioxide 26 mmol/L (23-31); Chloride 100 mmol/L (98-107); Estimated GFR-MDRD 52; Globulin 4.6 g/dL (2.4-3.5); Glucose 116 mg/dL (80-115); Potassium 4.3 mmol/L (3.5-5.1); Protein, Total 8.4 g/dL (6.0-8.3); Sodium 137 mmol/L (136-145)
[2018-11-24] MEDS ORDERED: cefTRIAXone\\ROCEPHIN 2 GM VIAL ONE (22:31)
[2018-11-24 23:10] LABS: Bilirubin Negative (Negative); Blood, Urine 2+ (Negative); Clarity Clear (Clear); Glucose, Urine (Dipstick) Normal (Negative); Leukocyte Negative Leu/uL (Negative); Nitrite Negative (Negative); Protein, Urine (Dipstick) 100 mg/dL (Neg-Trace); Squamous Epithelial 0-3 HPF (0-3); Urobilinogen 3 mg/dL (Less than 2); WBC/HPF 0-3 HPF (0-3)
[2018-11-24 23:15] LABS: Bacteria/HPF Rare-Few HPF (None Seen)
[2018-11-24 23:16] LABS: Mucous/LPF 3+ LPF (<2+)
--- NOTE | 2018-11-24 23:29 | PDOC.FPRHP ---
- History of Present Illness Chief Complaint: cough, congestion and sore throat History of Present Illness: 63 yo female presents with cough production of sputum, sore throat, and subjective fevers at home for 3-4 days. States that she has been feeling more tired, coughing more, and has developed a productive cough in the last few days. Denies sick contacts. Endorses hx of smoking. Denies seeing a pastry finisher for lung disease or any formal diagnosis of pulmonary disease. ED Course: Received 1L of NS, 500mg Azithromycin, 2g Rocephin, Tylenol 100mg, and DuoNeb - Allergies/Adverse Reactions Allergies Allergy/AdvReac Type Severity Reaction Status Date / Time codeine Allergy Verified 02/18/18 12:32 - Home Medications Medication Instructions Recorded Confirmed Type Carvedilol [Coreg] 25 mg PO BID-WM #0 tab 12/05/14 11/25/18 Rx Losartan Potassium 50 mg PO QAM 05/16/15 11/25/18 History Docusate [Colace] 100 mg PO BID PRN 02/01/16 11/25/18 History Ergocalciferol (Vitamin D2) 50,000 unit PO Q7D 02/18/18 11/25/18 History [Vitamin D2] Aspirin [Ecotrin Low Strength] 81 mg PO BID tab 03/04/18 11/25/18 Rx - History PMHx: HTN suspected COPD, not diagnosed PSHx: Appendectomy Cholecystectomy Hysterectomy Colostomy w/ reversal R TKA FHx: Non-contributory Social: Former smoker 7-8 pack year history, quit within past year. - Review of Systems General: reports: fever/chills, fatigue. denies: weight/appetite/sleep changes , night sweats Eyes: denies: eye pain, vision changes ENT: reports: other (sore throat). denies: nasal congestion, rhinorrhea Respiratory: reports: cough, congestion, shortness of breath, other Cardiovascular: reports: edema (left knee replacement recently). denies: chest pain, palpitation Gastrointestinal: denies: nausea, vomiting, diarrhea, constipation, abdominal pain, GI bleeding Genitourinary: denies: dysuria, polyuria Skin: denies: rashes, lesions Musculoskeletal: denies: pain, tenderness, stiffness, swelling Neurological: reports: other (headache). denies: numbness, syncope, seizure Psychological: denies: anxiety, depression - Vital signs BP:143/60 HR: 108 RR: 23 Tmax: Pox: 97% on 2L Wt: 90kg - Physical Exam Constitutional: NAD, awake, alert and oriented, well developed HEENT: normocephalic and atraumatic, PERRLA, EOMI, conjunctiva clear, grossly normal vision, grossly normal hearing Neck: supple, FROM, other (Tonsillar exudate) Chest: no-tender to palpation, no lesions Heart: normal S1/S2, no murmurs/rubs/gallops, pulses present -Heart: Irregularly irregular rhythm, tachycardic in the 130s, Lungs: no respiratory distress, good air movement, other (wheezes on the right) Abdomen: soft, non-tender, bowel sounds present, no masses/distention Musculoskeletal: normal structure, normal tone Neurological: no focal deficit, normal sensation Skin: no rash/lesions, good turgor Heme/Lymphatic: no unusual bruising or bleeding, no purpura Psychiatric: normal mood and affect, good judgment and insight, intact recent and remote memory FMR H&P: Results - Labs Result Diagrams: 11/24/18 21:56 11/24/18 21:56 Lab results: WBC 14.3 thou/uL (4.8-10.8) H 11/24/18 21:56 Hgb 13.0 g/dL (12.0-16.0) 11/24/18 21:56 Hct 42.2 % (36.0-47.0) 11/24/18 21:56 MCV 93.8 fL (78.0-98.0) 11/24/18 21:56 Plt Count 214 thou/uL (130-400) 11/24/18 21:56 Band Neuts % (Manual) 13 % (5-11) H 11/24/18 21:56 Sodium 137 mmol/L (136-145) 11/24/18 21:56 Potassium 4.3 mmol/L (3.5-5.1) 11/24/18 21:56 Chloride 100 mmol/L (98-107) 11/24/18 21:56 Carbon Dioxide 26 mmol/L (23-31) 11/24/18 21:56 BUN 15 mg/dL (9.8-20.1) 11/24/18 21:56 Creatinine 1.26 mg/dL (0.6-1.1) H 11/24/18 21:56 Glucose 116 mg/dL (80-115) H 11/24/18 21:56 Lactic Acid 1.1 mmol/L (0.5-2.2) 11/24/18 21:56 Calcium 10.1 mg/dL (7.8-10.44) 11/24/18 21:56 Total Bilirubin 0.7 mg/dL (0.2-1.2) 11/24/18 21:56 AST 23 U/L (5-34) 11/24/18 21:56 ALT 13 U/L (8-55) 11/24/18 21:56 Alkaline Phosphatase 123 U/L (40-150) 11/24/18 21:56 Serum Total Protein 8.4 g/dL (6.0-8.3) H 11/24/18 21:56 Albumin 3.8 g/dL (3.4-4.8) 11/24/18 21:56 Urine Ketones Negative mg/dL (Negative) 11/24/18 22:40 Urine Blood 2+ (Negative) A 11/24/18 22:40 Urine Nitrite Negative (Negative) 11/24/18 22:40 Ur Leukocyte Esterase Negative Yara/uL (Negative) 11/24/18 22:40 Urine RBC 4-6 HPF (0-3) A 11/24/18 22:40 Urine WBC 0-3 HPF (0-3) 11/24/18 22:40 Ur Squamous Epith Cells 0-3 HPF (0-3) 11/24/18 22:40 Urine Bacteria Rare-Few HPF (None Seen) 11/24/18 22:40 - EKG Interpretation EKG: Atrial fibrillation with RVR. Rate 130BPM, QT/QTc 350/515. - Radiology Interpretation Chest x-ray Status: report reviewed by me (No focal consolidation or alveolar edema. Mild linear density in the perihilar regions may represent vascular congestion.) FMR H&P: A/P - Problem List (1) Acute respiratory failure Current Visit: No Status: Acute Code(s): J96.00 - ACUTE RESPIRATORY FAILURE , UNSP W HYPOXIA OR HYPERCAPNIA (2) Hypertension Current Visit: No Status: Chronic Code(s): I10 - ESSENTIAL (PRIMARY) HYPERTENSION (3) COPD exacerbation Current Visit: No Status: Suspected Code(s): J44.1 - CHRONIC OBSTRUCTIVE PULMONARY DISEASE W (ACUTE) EXACERBATION (4) CKD (chronic kidney disease) stage 3, GFR 30-59 ml/min Current Visit: No Status: Acute Code(s): N18.3 - CHRONIC KIDNEY DISEASE, STAGE 3 (MODERATE) - Plan 1. Acute hypoxic respiratory failure secondary to suspected COPD exacerbation vs CAP * Met SIRS criteria. On arrival to the ED she was 88% on room air, febrile of 102.6F, tachycardic in the low 100s. Coughing up green sputum. Rapid strep negative. * Chest X-ray shows no acute processes. * Received Azithromycin and Rocephin in the ED. Will transition to Levaquin on Tele. * Received 1L bolus in the ED. Will repeat 500mL bolus when she arrives to the floor, then start maintenance fluids. * Has improved with 2L O2 by nasal cannula to 96% saturation. * Started Prednisone 40mg q day * Procal ordered 2. New onset atrial fibrillation with RVR * Transfer to telemetry * Start diltiazem drip * Chadsvasc (3) and Hasbled (1) - would likely benefit from anticoagulation. Will discuss in the morning. * Lovenox 40mg * ECHO ordered for the AM * TSH ordered 3. HTN * Continue hydralazine and metoprolol (home medications) 4. CKD III * Cr 1.26. Estimated GFR 52. * Continue IVFs. 5. Suspect COPD * Smoking history, history of chronic cough with sputum production. * DuoNebs prn 6. H/O colon resection, stable Disposition/LOS: Dispo: Inpatient Code: DNAR VTE: Lovenox Diet: HH Fluids: NS 100mL/hour FMR H&P: Upper Level - Pertinent history 63 yo f with a smoking hx presents with a cough productive of sputum and shortness of breath. - Pertinent findings Vitals: HR 130s BP143/60 88%RA PE: wheezing right sided tachycardic obese no edema a&0x3 labs: wbc 14.3 bands 13% Cr 1.26 - Plan Date/Time: 11/24/18 1805 #Acute hypoxic respiratory failure secondary to suspected COPD exacerbation- Will treat exacerbation with steroids, abx, and breathing tx, although pt currently in afib w/ rvr which is new for her. So we will hold off on additional breathing tx for now. She is currently not in respiratory distress. #Sepsis 2/2 suspected CAP-treating in conjunction with pt's COPD exacerbation with levaquin. Procal pending. Blood/urine cx pending. #New onset atrial fibrillation with RVR -will start a dilt drip and titrate as needed; plan to restart metoprolol in the am -consult cardiology in the am, consider anticoagulation long-term #HTN -Continue hydralazine and metoprolol #RENEE on CKD stage 3 -will treat with maintenance fluids and recheck bmp in the am H. MD Mel, PGY-3
[2018-11-24] MEDS ORDERED: Azithromycin 500 MG VIAL ONE (23:45)
[2018-11-25] MEDS ORDERED: Ondansetron ODT 4 MG TAB PO PRN (00:15)
[2018-11-25] MEDS ORDERED: Sodium Chloride 0.9% 1,000 ML IV SCH (00:15)
[2018-11-25] MEDS ORDERED: Acetaminophen 325 MG TAB PO PRN (00:15)
[2018-11-25] MEDS ORDERED: Diltiazem 125 MG in Sodium Chloride 0.9% 100 ML IVPB SCH (00:45)
[2018-11-25] MEDS ORDERED: Sodium Chloride 0.9% 500 ML IV SCH (01:30)
[2018-11-25] MEDS ORDERED: Diltiazem 125 MG in Sodium Chloride 0.9% 100 ML IVPB PRN (01:39)
[2018-11-25] MEDS: Sodium Chloride 0.9% 1,000 ML IV SCH ×2 (02:44→16:04)
[2018-11-25 03:22] VITALS: BMI 42.5
[2018-11-25 05:54] LABS: #Eosinphils 0.1 thou/uL (0.0-0.7); #Lymphocytes 1.7 thou/uL (1.20-3.40); #Neutrophils 9.5 thou/uL (1.40-6.50); %Basophils 0.2 % (0.0-1.0); %Eosinophils 0.8 % (0.0-10.0); %Lymphocytes 13.5 % (21.0-51.0); %Monocytes 8.1 % (0.0-10.0); %Neutrophils 77.3 % (42.0-75.0); Mean Corpuscular HGB CONC 33.1 g/dL (32.0-36.0); Mean Corpuscular Hemoglobin 30.6 pg (27.0-31.0); Mean Corpuscular Volume 92.5 fL (78.0-98.0); Mean Platelet Volume 9.2 fL (7.4-10.4); Platelet Count 162 thou/uL (130-400); Red Blood Cell (RBC) Count 3.59 mill/uL (4.20-5.40); White Blood Cell (WBC) Count 12.3 thou/uL (4.8-10.8)
[2018-11-25] MEDS ORDERED: Docusate 100 MG CAP PO PRN (08:16)
[2018-11-25] MEDS: Losartan 25 MG TAB PO SCH (09:33)
[2018-11-25] MEDS: Enoxaparin Sodium 40 MG/0.4 ML SYRINGE SC SCH (09:34)
[2018-11-25] MEDS: predniSONE 20 MG TAB PO SCH (09:34)
[2018-11-25] MEDS: Carvedilol 25 MG TAB PO SCH ×2 (09:34→16:10)
[2018-11-25] MEDS: Aspirin 81 mg Enteric Coated Tablet PO SCH ×2 (09:34→21:17)
--- NOTE | 2018-11-25 11:59 | PRG ---
DATE OF SERVICE: 11/25/2018 Ms. Mota is a pleasant 63-year-old lady with a history of COPD with only an 8 pack-year history of smoking. She presented with increased shortness of breath and productive cough, which is likely an exacerbation of her chronic lung disease. Interestingly, she also gives a history of snoring and witnessed apnea by her during sleep. We may suggest a sleep study as an outpatient when she is discharged. In the event, clinically she has improved with steroids and antibiotics as well as her breathing treatments. Job ID: [id number]
[2018-11-25 14:27] LABS: Legionella Urinary Ag Negative (Negative); Strep pneumo Urine Ag NEGATIVE (NEGATIVE)
--- NOTE | 2018-11-25 16:01 | CON ---
DATE OF CONSULTATION: REASON FOR CONSULTATION: Atrial fibrillation. Please see Hermelinda Rosales's full consultation for details. HISTORY OF PRESENT ILLNESS: Briefly, Ms. Mota recently was admitted for a COPD exacerbation. She had an episode of atrial fibrillation/flutter. This was short-lived. She is currently in sinus rhythm. She has no previous history of atrial fibrillation. No previous history of palpitations or heart fluttering. Her most recent episode was felt to be asymptomatic. PHYSICAL EXAMINATION: GENERAL: Patient is a pleasant female who is in no acute distress. The patient appears their stated age. VITAL SIGNS: Blood pressure 147/62, pulse 71, temperature 98.6. NEUROLOGIC: The patient is alert and oriented x3 with no focal neurologic deficits. HEENT: Sclerae without icterus. Mouth has moist mucous membranes with normal pallor. NECK: No JVD. Carotid upstroke brisk. No bruits bilaterally. LUNGS: Clear to auscultation with unlabored respirations. BACK: No scoliosis or kyphosis. CARDIAC: Regular rate and rhythm with normal S1 and S2. No S3 or S4 noted. No significant rubs, murmurs, thrills, or gallops noted throughout the precordium. PMI is not displaced. There is no parasternal heave. ABDOMEN: Soft, nontender, nondistended. No peritoneal signs present. No hepatosplenomegaly. No abnormal striae. EXTREMITIES: 2+ femoral and 2+ dorsalis pedis pulses. No cyanosis, clubbing, or edema. SKIN: No gross abnormalities. PERTINENT LABORATORY DATA: Hemoglobin 11, white blood cell count 12,000. Creatinine 1.26, GFR 52. IMPRESSION: 1. Paroxysmal atrial fibrillation/flutter. 2. Chronic obstructive pulmonary disease exacerbation. 3. Hypertension. RECOMMENDATIONS: Certainly difficult to assess long-term recommendations based on a brief episode of atrial fibrillation. May consider Multaq, but may be cost prohibitive. We will also discuss anticoagulation therapy. May benefit from a 3-week event recorder versus an IMR to assess for long-term episode of atrial fibrillation. This episode may have been in the face of recent illness. Her TSH is within normal limits. Echo Doppler has been ordered. Further recommendations per Dr. Luiz Ochoa. Job ID: [id number]
--- NOTE | 2018-11-25 18:27 | CON ---
DATE OF CONSULTATION: 11/25/2018 ADMITTING PHYSICIAN: [facility]. CONSULTING PHYSICIAN: Dr. Billings, Cardiology. REASON FOR CONSULTATION: Atrial fibrillation with RVR. HISTORY OF PRESENT ILLNESS: Ms. Mota is a pleasant 63-year-old female, who presented to the emergency room with complaint of fever, cough, congestion, and upper respiratory infection. She was initially in sinus rhythm and converted to new onset atrial fibrillation with RVR. She was placed on IV Cardizem and is now converted back to normal sinus rhythm. She has currently been treating for acute upper respiratory infection and possible pneumonia. She has no previous history of arrhythmias in the past. She was seen many years ago and has a history of diastolic dysfunction and hypertension. Currently at this time, she is stable and has no complaints. An echocardiogram has been done and report is pending. CURRENT MEDICATIONS: 1. Tylenol p.r.n. 2. DuoNeb p.r.n. 3. Aspirin 81 mg daily. 4. Coreg 25 mg b.i.d. 5. IV Cardizem. 6. Lovenox 40 mg subcu daily. 7. Levaquin 750 mg IV once daily. 8. Cozaar 50 mg daily. 9. Zofran p.r.n. 10. Prednisone 40 mg daily. ALLERGIES: CODEINE. PAST MEDICAL HISTORY: 1. Hypertension. 2. Chronic kidney disease. 3. Possible COPD. 4. Former smoker. PAST SURGICAL HISTORY: Appendectomy, cholecystectomy, hysterectomy, and colostomy with reversal. FAMILY HISTORY: Noncontributory. SOCIAL HISTORY: The patient is a former smoker and thinks she quit approximately a year ago. REVIEW OF SYSTEMS: In general, a 10-point review of systems discussed with the patient is negative except for HPI and past medical history mentioned above. PHYSICAL EXAMINATION: GENERAL: This is a pleasant female, who is in no acute distress. She is lying in bed, resting comfortably and conversing easily. HEENT: Head is atraumatic and normocephalic. Mucous membranes are moist. NECK: Supple with no JVD or bruits noted. CHEST: Reveals no wheezing or rhonchi. CARDIOVASCULAR: Regular rate and rhythm with normal S1 and S2. No murmurs, rubs, or gallops. ABDOMEN: Soft and nontender to palpation, nondistended. EXTREMITIES: Show no clubbing, cyanosis, or edema. SKIN: Warm and dry. PSYCHIATRIC: Mood and affect are appropriate. MUSCULOSKELETAL: Not fully assessed. LABORATORY DATA: CBC shows white count 12.3, hemoglobin 11.0, hematocrit 33.2, platelet count is 162,000. BMP was within normal limits except for elevated creatinine 1.26 and glucose 116. Labs otherwise are unremarkable. Telemetry shows the patient with normal sinus rhythm. Again, earlier today she was in atrial fibrillation with RVR. Her IV Cardizem has been stopped at this time. IMPRESSION: 1. New onset atrial fibrillation with RVR. 2. Acute upper respiratory infection. At this time, her atrial fibrillation has resolved. It may just be related to her acute illness. I would recommend observation only currently. We will continue her beta blockers and consider adding p.o. Cardizem in addition. I would recommend a 30-day monitor as an outpatient. Right now, we will keep her on aspirin therapy only if atrial fibrillation recurs. Consider adding ACT. Dr. Billings will see and evaluate the patient later today. She is stable and understands and agrees to plan of care. Job ID: [id number]
[2018-11-26] MEDS: Sodium Chloride 0.9% 1,000 ML IV SCH ×3 (00:23→15:33)
--- NOTE | 2018-11-26 06:41 | PDOC.FM ---
- Objective Vital Signs & Weight: Vital Signs (12 hours) Temp Pulse Resp BP Pulse Ox 11/26/18 04:00 99.1 F 66 16 168/73 H 100 11/25/18 19:45 97.8 F 67 18 140/63 100 Weight Weight 99.201 kg I&O: 11/24/18 11/25/18 11/26/18 06:59 06:59 06:59 Intake Total 240 2610 Output Total 500 800 Balance -260 1810 Result Diagrams: 11/26/18 06:54 11/26/18 06:54 Dx/Plan (1) Paroxysmal A-fib Code(s): I48.0 - PAROXYSMAL ATRIAL FIBRILLATION Status: Acute (2) Acute respiratory failure Code(s): J96.00 - ACUTE RESPIRATORY FAILURE, UNSP W HYPOXIA OR HYPERCAPNIA Status: Acute Qualifiers: Respiratory failure complication: hypoxia Qualified Code(s): J96.01 - Acute respiratory failure with hypoxia (3) Hypertension Code(s): I10 - ESSENTIAL (PRIMARY) HYPERTENSION Status: Chronic (4) COPD exacerbation Code(s): J44.1 - CHRONIC OBSTRUCTIVE PULMONARY DISEASE W (ACUTE) EXACERBATION Status: Suspected (5) RENEE (acute kidney injury) Code(s): N17.9 - ACUTE KIDNEY FAILURE, UNSPECIFIED Status: Acute - Plan Plan: 63yo F with h/o of suspected COPD presents with acute hypoxic respiratory failure and new onset afib with RVR 1. Acute hypoxic respiratory failure 2/2 suspected COPD exacerbation with CAP - Met SIRS criteria. Initially satting 88% on RA, improved to 100% on 2L for past 24 hours. Wean to RA and encourage ambulation today. - Prednisone 40mg daily, day 2 - SOB markedly improved. Prn Duonebs, has not requiring any tx since admission 2. Sepsis 2/2 to suspected CAP - Initially febrile to 102.6, afebrile since. S/P 1 dose Azithro and Rocephin in ED. On Levaquin Day 2 for suspected CAP - CXR no acute process. Strep and legionella negative. BCx NGTD, continue to monitor. UA + blood, no signs of infection. Procal 0.34. - S/p fluid bolus in ED and at admit. MIVF at 100cc/hr - WBC 14 -> 9.2 3. New onset atrial fibrillation with RVR - Converted to sinus prior to starting dilt. Monitoring on tele, no acute events or return of afib at this time. - CHADSVASC 3, HASBLED 1 - ECHO results pending. TSH WNL. - Cards, Dr. Billings, consulted. Rec multag vs anticoag as well as possible 3wk event recorder vs IMR to monitor. Appreciate recs. - Will discuss with pt option of starting anticoag, Eliquis, as well as PCP and Cards f/u as OP 4. HTN - Continue home losartan. BP 140/63 - 168/73. Likely 2/2 steroids. Continue to monitor, may need OP adjustment of BP meds if remain elevated after admission. 5. RENEE - Cr 1.26 on admit, improved to 0.96 with fluid hydration, likely prerenal. - MIVF at 100cc/hr 6. Suspect COPD - Smoking history, history of chronic cough with sputum production. - DuoNebs prn. Tx as per above. - Will need f/u with PCP for PFTs and formal diagnosis. 7. Deconditioning - Will consult PT/OT to eval and tx, appreciate recs Code: DNAR VTE: Lovenox Diet: HH Fluids: NS 100mL/hour Dispo: Pending cards recs and improvement of respiratory status and wean to RA. Anticipate hospitalization 2-3 days.
[2018-11-26 07:05] LABS: Hemoglobin 10.4 g/dL (12.0-16.0); Mean Corpuscular HGB CONC 31.2 g/dL (32.0-36.0); Mean Corpuscular Hemoglobin 30.2 pg (27.0-31.0); Mean Corpuscular Volume 96.7 fL (78.0-98.0); Mean Platelet Volume 9.5 fL (7.4-10.4); Platelet Count 172 thou/uL (130-400); RBC Distribution Width 13.1 % (11.5-14.5); Red Blood Cell (RBC) Count 3.44 mill/uL (4.20-5.40); White Blood Cell (WBC) Count 9.2 thou/uL (4.8-10.8)
[2018-11-26 07:29] LABS: Anion Gap 12 mmol/L (10-20); BUN (Urea Nitrogen) 14 mg/dL (9.8-20.1); Calc. Creatinine Clearance 91 mL/min (70-130); Calcium 9.1 mg/dL (7.8-10.44); Carbon Dioxide 23 mmol/L (23-31); Chloride 110 mmol/L (98-107); Estimated GFR-MDRD 71; Glucose 93 mg/dL (80-115); Magnesium 1.9 mg/dL (1.6-2.6); Phosphorus 2.5 mg/dL (2.3-4.7); Sodium 141 mmol/L (136-145)
[2018-11-26 08:35] LABS: Band 7 % (5-11); Hypochromia SLIGHT = 6-15 cells (100X) (0-5/hpf); Lymphocytes 19 % (21-51); MDiff Complete? YES; Monocytes 9 % (0-10); Neutrophil 65 % (42-75); Platelet Morphology Comment Appears Adequate; Polychromasia SLIGHT = 2-3 cells (100X) (0-2/hpf)
[2018-11-26] MEDS: Enoxaparin Sodium 40 MG/0.4 ML SYRINGE SC SCH (08:37)
[2018-11-26] MEDS: Losartan 25 MG TAB PO SCH (08:38)
[2018-11-26] MEDS: Aspirin 81 mg Enteric Coated Tablet PO SCH (08:38)
[2018-11-26] MEDS: Carvedilol 25 MG TAB PO SCH ×2 (08:38→17:22)
[2018-11-26] MEDS: predniSONE 20 MG TAB PO SCH (08:38)
--- NOTE | 2018-11-26 11:11 | PRG ---
DATE OF SERVICE: 11/26/2018 Ms. Mota is awake and alert and very pleasant this morning. She demonstrates no respiratory distress. I am still concerned that there may be more to her lung problem than "COPD." She does snore. She has a body habitus consistent with someone who may have sleep apnea. I have asked her to discuss the possibility of a sleep study with her PCP upon discharge. In the event, clinically she is much improved and will likely be discharged either later today or early tomorrow. Her room air O2 saturation this morning was 93. Job ID: [id number]
[2018-11-26] MEDS ORDERED: Apixaban 5 MG TAB PO SCH ×2 (14:00→21:00)
--- NOTE | 2018-11-26 16:14 | PDOC.CTH ---
Cardiology Progress Note - Subjective She is doing very well. Remains in sinus. - Objective Vital Signs Temp Pulse Pulse Pulse Resp BP BP 11/26/18 13:40 62 55 L 171/77 H 155/67 H 11/26/18 12:00 98.0 F 56 L 18 11/26/18 07:17 98.0 F 57 L 18 BP Pulse Ox Pulse Ox 11/26/18 13:40 95 11/26/18 12:00 141/65 H 95 11/26/18 07:17 141/65 H 100 Weight 218 lb 11.2 oz 11/25/18 11/26/18 11/27/18 06:59 06:59 06:59 Intake Total 240 2610 Output Total 500 800 200 Balance -260 1810 -200 - Physical Examination General/Neuro: alert & oriented x3, NAD Neck: no JVD present Lungs: CTA, unlabored respirations Heart: RRR Abdomen: NT/ND Extremities: + edema B (trace) - Telemetry Telemetry Rhythm: NSR - Labs Result Diagrams: 11/26/18 06:54 11/26/18 06:54 - Assessment/Plan 1. New onset Afib 2. CHADS VASc of 3 PLAN: - Eliquis 5 mg BID for stroke prophylaxis - May discharge home from cardiac perspective. - Follow up with Dr. Billings in one month.
[2018-11-26 17:14] VITALS: TEMP 98.1
[2018-11-26 17:15] VITALS: BP 179/81
--- NOTE | 2018-11-26 22:31 | DIS ---
DATE OF ADMISSION: 11/25/2018 DATE OF DISCHARGE: 11/26/2018 RESIDENT: Paul Motley MD ADMITTING ATTENDING: Se Bedoya MD DISCHARGE ATTENDING: Asim Dallas MD CONSULTS: Cardiology, Dr. Billings and Dr. Ochoa. PROCEDURES PERFORMED: 1. Chest x-ray on 11/24/2018, no focal consolidation or edema. Mild linear density in the perihilar region that may signify mild vascular congestion. 2. Echocardiogram on 11/26/2018. Ejection fraction of 55% to 60%. She does have a diastolic dysfunction with atrium moderately dilated. PRIMARY DIAGNOSES: 1. Acute hypoxic respiratory failure secondary to suspected chronic obstructive pulmonary disease exacerbation with community-acquired pneumonia. 2. Sepsis secondary to community-acquired pneumonia. 3. New onset atrial fibrillation with RVR. SECONDARY DIAGNOSES: 1. Hypertension. 2. Suspected chronic obstructive pulmonary disease. 3. Deconditioning. DISCHARGE MEDICATIONS: 1. Eliquis 5 mg p.o. b.i.d. 2. Levaquin 750 mg p.o. daily x5 days. 3. Prednisone 40 mg p.o. daily x3 days. 4. Vitamin D 50,000 units q.7 days. 5. Colace 100 mg p.o. b.i.d. p.r.n. 6. Losartan 50 mg p.o. q.a.m. 7. Carvedilol 25 mg p.o. b.i.d. DISCONTINUED MEDICATIONS: Aspirin 81 mg p.o. b.i.d. HISTORY OF PRESENT ILLNESS AND HOSPITAL COURSE: Ms. Mota is a very pleasant 63-year-old female with past medical history of hypertension and suspected COPD, who presented with productive cough of thick yellow sputum, sore throat, and subjective fevers at home for the past 3 or 4 days. She states that she has been feeling more fatigued and has had increased cough, but denies any sick contacts. She does endorse a history of smoking approximately a 10-pack year history, but quit many years ago. She has never seen a service car operator or had any formal diagnosis of pulmonary disease. In the ED, she received 1 L normal saline bolus as well as a dose of azithromycin, Rocephin, and DuoNeb treatment. She was initially febrile and required 2 L nasal cannula to maintain her oxygen saturations above 92% and was tachycardic as well. After receiving the DuoNeb treatment, she then began to experience any irregularly irregular rhythm with tachycardia into the 130s. An EKG was obtained that showed atrial fibrillation with RVR. Initially , the patient was placed on the diltiazem drip and rapidly converted back into sinus rhythm. Once admitted to the floor, the patient was placed on the telemetry for observation as well as supplemental O2 to maintain her sats greater than 92%. She was started on prednisone 40 mg daily, as well as Levaquin for her suspected community- acquired pneumonia. Chest x-ray revealed no acute process. A rapid stress test was negative and blood cultures were obtained that did have no growth at 42 hours upon discharge. Regarding her atrial fibrillation, she rapidly converted to normal sinus rhythm after diltiazem drip, was placed on telemetry and had no return of atrial fibrillation. Cardiology was consulted, who recommended anticoagulation as well as possible Holter monitor as an outpatient to monitor for recurrence. Risks, benefits, and alternatives were discussed with the patient as well as her CHADS-VASc score of 3 and HAS-BLED score of 1. Thus, it was decided the patient will be started on Eliquis 5 mg p.o. b.i.d. and to follow up with her forest botany instructor, Dr. Billings, in 1 month. Regarding her COPD exacerbation likely due to her community acquired pneumonia, she was initially placed on 2 L nasal cannula and saturating well. She was given the dose of prednisone and Levaquin antibiotics. She was then able to be weaned to room air the following morning and was able to ambulate well without any recurrent desaturations. She did present with initial RENEE with a creatinine of 1.26. This improved with gentle hydration and to a creatinine of 0.96 upon discharge. At the time of discharge, the patient was saturating well on room air and ambulating without any difficulty. She did not have any concerns or complaints, and was eager to be discharged home. Her discharge plan was discussed with her, as well as continuing her Eliquis for anticoagulation and stroke prevention due to her newly diagnosed atrial fibrillation. It was told that she should discontinue her home aspirin, but restart all of her other home medications. It was discussed with the patient that she did not have a formal diagnosis of COPD, thus it might be useful to discuss with her primary care physician on obtaining formal testing as well as possible sleep apnea testing. The patient voiced agreement and understanding of the discharge plan, and was eager to go home. The patient was discharged home to follow up with primary care physician and forest botany instructor. DISPOSITION: Stable. DISCHARGE INSTRUCTIONS: 1. Location: Home. 2. Diet: Heart healthy. 3. Activity: As tolerated. 4. Followup: The patient is to follow up with Dr. Billings, her forest botany instructor, in 1 month. The patient is also to follow up with her primary care physician within 1 week. Job ID: [id number] MTDD
[2018-11-27] MEDS ORDERED: Aspirin 81 mg Enteric Coated Tablet PO SCH (09:00)
== END 2018-11-26 18:55 | disposition home or self-care (01) | DRG 871 ==
LOC: ERS 21:23 → 2NO 11-25 00:09
PROVIDERS: ADMIT Family Medicine; ATTEND Family Medicine
DX: A41.9 Sepsis, unspecified organism (principal); J96.01 Acute respiratory failure with hypoxia; J18.9 Pneumonia, unspecified organism; J44.1 Chronic obstructive pulmonary disease with (acute) exacerbation; N17.9 Acute kidney failure, unspecified; I12.9 Hypertensive chronic kidney disease with stage 1 through stage 4 chronic kidney disease, or unspecified chronic kidney disease; N18.3 Chronic kidney disease, stage 3 (moderate); I48.0 Paroxysmal atrial fibrillation; R53.81 Other malaise; Z96.651 Presence of right artificial knee joint; Z88.5 Allergy status to narcotic agent; Z87.891 Personal history of nicotine dependence; Z90.49 Acquired absence of other specified parts of digestive tract; Z90.710 Acquired absence of both cervix and uterus; Z93.3 Colostomy status; Z79.82 Long term (current) use of aspirin; Z79.2 Long term (current) use of antibiotics
CPT/HCPCS: 36415; 71045; 80048; 80053; 81003; 81015; 83605; 83735; 84100; 84145; 84146; 84443; 85025; 87040; 87081; 87430; 87899; 93005; 93306; 94640; A4353; J0456; J0696; J1650; J1956; J7512; J7620

== ENCOUNTER 2019-09-04 19:04 | Emergency (ER) | payer OTHER, MEDICARE ==
--- NOTE | 2019-09-04 20:00 | CT ---
CT head noncontrast HISTORY: Fall. Injury. FINDINGS: There is no evidence of acute intracranial hemorrhage or infarct. Mild chronic ischemic sma ll vessel disease are again demonstrated throughout the periventricular white matter of each cerebral hemisphere. There is no mass effect or shift of midline structures. Mild mucosal thickening of the sphenoid sinus. IMPRESSION : No acute intracranial abnormalities are demonstrated.
--- NOTE | 2019-09-04 20:02 | CT ---
CT face noncontrast HISTORY: Fall. Injury. FINDINGS: The mandible, globes, and zygomatic arches are intact. No orbital hematoma. Prominent soft tissue swelling at the right maxillary tissues. Prominent degenerative changes of the temporomandibular joints. IMPRESSION : Right facial swelling. No acute osseous abnormalities are demonstrated.
--- NOTE | 2019-09-04 20:03 | RAD ---
Right knee 4 views HISTORY: Fall. Injury. COMPARISON: 08/29/2018. FINDINGS: Total knee prosthesis in place. No chano-hardware lucency. No acute fracture, dislocation, or fluid distention of the suprapatellar bursa. Embolus overlie the s oft tissues. IMPRESSION : No acute abnormalities are demonstrated.
== END 2019-09-04 20:40 | disposition home or self-care (01) ==
LOC: ERS 19:04
DX: S80.01XA Contusion of right knee, initial encounter (principal); S00.83XA Contusion of other part of head, initial encounter; J44.9 Chronic obstructive pulmonary disease, unspecified; I10 Essential (primary) hypertension; F41.9 Anxiety disorder, unspecified; Z87.891 Personal history of nicotine dependence; Z79.899 Other long term (current) drug therapy; W18.30XA Fall on same level, unspecified, initial encounter
CPT/HCPCS: 70450; 70486

== ENCOUNTER 2021-05-14 08:53 | Outpatient (CLI) | payer MEDICARE | END 2021-05-14 08:54 | disposition home or self-care (01) | LOC: BICRAD 08:53 | PROVIDERS: ATTEND Family Medicine | DX: R05.9 Cough, unspecified (principal); J98.4 Other disorders of lung | CPT/HCPCS: 71046 ==

== ENCOUNTER 2021-05-21 15:07 | Outpatient (CLI) | payer MEDICARE | END 2021-05-21 15:08 | disposition home or self-care (01) | LOC: BICRAD 15:07 | PROVIDERS: ATTEND Internal Medicine Rheumatology | DX: M05.79 Rheumatoid arthritis with rheumatoid factor of multiple sites without organ or systems involvement (principal); M25.541 Pain in joints of right hand; M25.542 Pain in joints of left hand; M19.041 Primary osteoarthritis, right hand; M85.842 Other specified disorders of bone density and structure, left hand ==

== ENCOUNTER 2023-03-13 01:04 | Emergency (ER) | payer MEDICARE ==
[2023-03-13] MEDS ORDERED: HYDROcodone/Acetaminophen 5/325 mg Tablet ONE (01:46)
[2023-03-13 02:53] LABS: #Eosinphils 0.1 thou/uL (0.0-0.7); #Monocytes 0.4 thou/uL (0.11-0.59); #Neutrophils 3.6 thou/uL (1.40-6.50); %Basophils 0.4 % (0.0-1.0); %Eosinophils 1.5 % (0.0-10.0); %Lymphocytes 22.5 % (21.0-51.0); %Monocytes 7.2 % (0.0-10.0); Hematocrit 44.3 % (36.0-47.0); Hemoglobin 13.4 g/dL (12.0-16.0); Mean Corpuscular HGB CONC 30.2 g/dL (32.0-36.0); Mean Corpuscular Hemoglobin 30.4 pg (27.0-31.0); Mean Corpuscular Volume 100.5 fl (78.0-98.0); Mean Platelet Volume 10.5 fL (7.4-10.4); Platelet Count 217 10x3/uL (130-400); RBC Distribution Width 14.7 % (11.5-14.5); Red Blood Cell (RBC) Count 4.41 mill/uL (4.20-5.40); White Blood Cell (WBC) Count 5.3 10x3/uL (4.8-10.8)
[2023-03-13 03:08] LABS: Bacteria/HPF None Seen HPF (None Seen); Bilirubin Negative (Negative); Blood, Urine Negative (Negative); CAUTI Indications for Culture Fever or rigors; Clarity Clear (Clear); Glucose, Urine (Dipstick) Normal (Negative); Ketone, Urine Negative (Negative); Leukocyte Negative Leu/uL (Negative); Nitrite Negative (Negative); Protein, Urine (Dipstick) Negative (Neg-Trace); RBC/HPF 0-3 HPF (0-3); Specific Gravity, Urine 1.006 (1.002-1.036); Squamous Epithelial None Seen HPF (0-3); Urobilinogen Normal mg/dL (Less than 2); WBC/HPF None Seen HPF (0-3); pH, Urine 7.5 (5.0-9.0)
[2023-03-13 03:10] LABS: Urine Culture Reflex No No
[2023-03-13 03:17] LABS: ALT (SGPT) 7 U/L (8-55); AST (SGOT) 14 U/L (5-34); Albumin 3.8 g/dL (3.4-4.8); Alkaline Phosphatase 104 U/L (40-110); Anion Gap 16 mmol/L (10-20); BUN (Urea Nitrogen) 8 mg/dL (9.8-20.1); Calc. Creatinine Clearance 0 mL/min (70-130); Calcium 9.5 mg/dL (7.8-10.44); Carbon Dioxide 24 mmol/L (23-31); Chloride 106 mmol/L (98-107); Estimated GFR 49; Globulin 3.3 g/dL (2.4-3.5); Glucose 98 mg/dL (80-115); Potassium 3.9 mmol/L (3.5-5.1); Protein, Total 7.1 g/dL (5.8-8.1); Sodium 142 mmol/L (136-145)
== END 2023-03-13 03:49 | disposition home or self-care (01) ==
LOC: ERS 01:04
DX: M25.561 Pain in right knee (principal); I10 Essential (primary) hypertension; J44.9 Chronic obstructive pulmonary disease, unspecified; Z87.891 Personal history of nicotine dependence
CPT/HCPCS: 80053; 81001; 85025; 87040

== ENCOUNTER 2023-03-26 16:59 | Emergency (ER) | payer MEDICARE ==
[2023-03-26 17:41] LABS: #Eosinphils 0.2 thou/uL (0.0-0.7); #Monocytes 0.5 thou/uL (0.11-0.59); #Neutrophils 2.4 thou/uL (1.40-6.50); %Basophils 0.8 % (0.0-1.0); %Eosinophils 3.6 % (0.0-10.0); %Lymphocytes 36.8 % (21.0-51.0); %Monocytes 10.4 % (0.0-10.0); %Neutrophils 48.2 % (42.0-75.0); Hematocrit 46.2 % (36.0-47.0); Hemoglobin 13.7 g/dL (12.0-16.0); Mean Corpuscular HGB CONC 29.7 g/dL (32.0-36.0); Mean Corpuscular Volume 101.3 fl (78.0-98.0); Platelet Count 201 10x3/uL (130-400); RBC Distribution Width 14.6 % (11.5-14.5); Red Blood Cell (RBC) Count 4.56 mill/uL (4.20-5.40)
[2023-03-26 18:07] LABS: ALT (SGPT) 21 U/L (8-55); AST (SGOT) 24 U/L (5-34); Albumin 3.7 g/dL (3.4-4.8); Alkaline Phosphatase 90 U/L (40-110); Anion Gap 14 mmol/L (10-20); BUN (Urea Nitrogen) 15 mg/dL (9.8-20.1); Bilirubin, Total 0.8 mg/dL (0.2-1.2); Calc. Creatinine Clearance 0 mL/min (70-130); Calcium 9.4 mg/dL (7.8-10.44); Carbon Dioxide 28 mmol/L (23-31); Chloride 106 mmol/L (98-107); Estimated GFR 49; Globulin 3.3 g/dL (2.4-3.5); Glucose 86 mg/dL (80-115); Potassium 3.9 mmol/L (3.5-5.1); Sodium 144 mmol/L (136-145)
[2023-03-26 19:21] LABS: Acetaminophen Less than 10 mcg/mL (10.0-30.0); Alcohol Less than 10.0 mg/dL (Less than 10); Salicylate Less than 8.0 mg/dL (15.0-30.0)
[2023-03-26 19:23] LABS: Amphetamine Not Detected (NotDetected); Barbiturates Screen Not Detected (NotDetected); Benzodiazepine Screen Not Detected (NotDetected); Cocaine Metabolite Screen Not Detected (NotDetected); Methadone Not Detected (NotDetected); Methamphetamine Not Detected (NotDetected); Opiate Screen Not Detected (NotDetected); Oxycodone Screen Not Detected (NotDetected); Phencyclidine (PCP) Not Detected (NotDetected); THC/Cannabinoid Screen Not Detected (NotDetected); Tricyclic Screen Not Detected (NotDetected)
[2023-03-26 19:24] LABS: Bacteria/HPF None Seen HPF (None Seen); Bilirubin Negative (Negative); Blood, Urine Negative (Negative); CAUTI Indications for Culture Alt mental st,lethar; Clarity Clear (Clear); Glucose, Urine (Dipstick) Normal (Negative); Ketone, Urine Negative (Negative); Leukocyte Negative Leu/uL (Negative); Nitrite Negative (Negative); Protein, Urine (Dipstick) 20 mg/dL (Neg-Trace); RBC/HPF 0-3 HPF (0-3); Specific Gravity, Urine 1.018 (1.002-1.036); Squamous Epithelial 0-3 HPF (0-3); Urobilinogen 3 mg/dL (Less than 2); WBC/HPF 0-3 HPF (0-3)
[2023-03-26 19:27] LABS: Urine Culture Reflex No No
[2023-03-26] MEDS ORDERED: Aspirin 325 MG TAB ONE (22:05)
== END 2023-03-26 23:07 | disposition home or self-care (01) ==
LOC: ERS 16:59
DX: R44.1 Visual hallucinations (principal); R79.89 Other specified abnormal findings of blood chemistry; I10 Essential (primary) hypertension; J44.9 Chronic obstructive pulmonary disease, unspecified; Z87.891 Personal history of nicotine dependence; Z79.899 Other long term (current) drug therapy
CPT/HCPCS: 36415; 70450; 71045; 80053; 80306; 80307; 81001; 83690; 84443; 84484; 85025; 93005